=== PATIENT | male | born 1975 | race American Indian/Alaskan Native ===

== ENCOUNTER 2018-01-23 12:48 | Emergency (ER) | payer BC ==
[2018-01-23] MEDS ORDERED: TYLENOL ONE (13:09)
[2018-01-23] MEDS ORDERED: TYLENOL PO ONE (13:10)
[2018-01-23] MEDS ORDERED: BACTRIM DS PO ONE (15:14)
[2018-01-23] MEDS ORDERED: KEFLEX PO ONE (15:14)
--- NOTE | 2018-01-23 15:19 | Emergency Department Report ---
Abscess Boil HPI - HPI Chief Complaint: Pain General Stated Complaint: SWOLLEN EAR LOBE/LEFT Time Seen by Provider: 01/23/18 15:11 Duration: Today Location: Other (left ear) History: Yes Pain, No Foreign Body HPI: Mr. Pretty has abscess behind left ear lobe with tenderness and redness no trauma to the area, has been taking Augmentin for several days Home Medications: Previous Rx's Medication Instructions Recorded Last Taken Type Clindamycin [Clindamycin CAP] 300 mg PO Q8H 10 Days #30 capsule 01/23/18 Unknown Rx Allergies/Adverse Reactions: Allergies Allergy/AdvReac Type Severity Reaction Status Date / Time No Known Allergies Allergy Unverified 01/23/18 13:10 ED Review of Systems ROS: Stated complaint: SWOLLEN EAR LOBE/LEFT Other details as noted in HPI Constitutional: denies: fever, malaise ENT: ear pain. denies: throat pain Gastrointestinal: denies: abdominal pain Skin: rash, lesions, change in color Neurological: denies: headache ED Past Medical Hx - Past Medical History Previous Medical History?: No - Surgical History Hx Appendectomy: Yes (2000) Additional Surgical History: vesectomy x4 years ago - Social History Smoking Status: Current Every Day Smoker Substance Use Type: None - Medications Home Medications: Home Medications Medication Instructions Recorded Confirmed Last Taken Type Clindamycin [Clindamycin CAP] 300 mg PO Q8H 10 Days #30 capsule 01/23/18 Unknown Rx ED Abscess Boil Physical Exam - Exam General: Vital signs noted. No distress. Alert and acting appropriately. Front/Back of Body, Lg (Color): 1 - 2 cm abscess just posterior to left ear lobe Size: 2 cm Exam: Yes Tenderness, Yes Fluctuance, Yes Surrounding Cellulites/Erythema (3c), Yes Lymphangitis (+tender lymph node inferior to ear lobe), Yes Normal Neurologic Exam, Yes Normal Circulation, No Crepitation, No Heart Murmur I & D Note - I & D Note I & D Note: alcohol prep, stab incision with #11 blade 2 ml of pus expressed ED Course Vital Signs 01/23/18 13:06 Temperature 98.2 F Pulse Rate 72 Blood Pressure 131/83 Critical care attestation.: If time is entered above; I have spent that time in minutes in the direct care of this critically ill patient, excluding procedure time. ED Medical Decision Making - Medical Decision Making Mr. Pretty hads a successful I&D of ear abscess. Approximately 2-3 mL of pus was expressed. I will change his antibiotics from Augmentin to clindamycin. He has been taking Augmentin for the past several days. I am concerned for MRSA. He has had this abscess in the buttock region. Diagnosis ear abscess cellulitis ED Disposition Clinical Impression: Abscess, Cellulitis Disposition: DC-01 TO HOME OR SELFCARE Is pt being admited?: No Does the pt Need Aspirin: No Condition: Stable Instructions: Abscess Incision and Drainage (ED), Abscess (ED) Prescriptions: Clindamycin [Clindamycin CAP] 300 mg PO Q8H 10 Days #30 capsule Referrals: PRIMARY CARE, [Primary Care Provider] - 3-5 Days Time of Disposition: 15:30
[2018-01-23 15:39] VITALS: BP 122/68
== END 2018-01-23 15:37 | disposition home or self-care (01) ==
LOC: ED 12:48
DX: H60.02 Abscess of left external ear (principal); F17.200 Nicotine dependence, unspecified, uncomplicated; Z90.49 Acquired absence of other specified parts of digestive tract